=== PATIENT | male | born 1960 | race Caucasian/White ===

== ENCOUNTER → 2016-06-29 | Outpatient (CLI) | payer BC ==
[2016-06-29 18:44] LABS: ALT/SGPT 218 U/L (12-78); AST/SGOT 127 U/L (15-37); BLOOD UREA NITROGEN 17 mg/dl (7-18); BUN/CREATININE RATIO 13.8 (10-20); CALCIUM 9.3 mg/dl (8.5-10.1); CARBON DIOXIDE 27 mmol/L (21-32); CHLORIDE 106 mmol/L (98-107); GLUCOSE 88 mg/dl (70-99); POTASSIUM 4.3 mmol/L (3.5-5.1); SODIUM 143 mmol/L (136-145)
[2016-06-29 18:49] LABS: ALKALINE PHOSPHATASE 118 U/L (45-117); CHOLESTEROL 180 mg/dl (0-200); CHOLESTEROL/HDL RATIO 3.7; HDL CHOLESTEROL 49 mg/dl; LDL CHOLESTEROL CALCULATED 106 mg/dl; TRIGLYCERIDES 123 mg/dl (0-150); VERY LOW DENSITY LIPOPROT CALC 25 mg/dl
--- NOTE | 2016-08-02 06:00 | CODING QUERY MEDICAL NECESSITY ---
CQSUPPORTING DIAGNOSIS NEEDED A supporting diagnosis is required for the test/procedure performed on this patient in order for us to be reimbursed by the patient's insurance. Please provide a supporting diagnosis for the following test/procedure listed below next to the test name along with your signature. *If there is no additional diagnosis for this patient that would support the following test/procedure please document that below next to the test/procedure. Test(s)/Procedure(s) that require a supporting diagnosis: DOS 06/29/16 PROSTATE SPECIFIC TEST (PSA) Provider Signature: Date: Thank you Lesly Laird [facility] Information [facility] Once completed, please kindly fax back to [phone] For questions please call [phone]
== END | disposition home or self-care (01) ==
LOC: C.LABMFLN 16:49
PROVIDERS: ATTEND Family Medicine
DX: I10 Essential (primary) hypertension (principal); E78.00 Pure hypercholesterolemia, unspecified; R74.0 Nonspecific elevation of levels of transaminase and lactic acid dehydrogenase [LDH]; M85.80 Other specified disorders of bone density and structure, unspecified site; E55.9 Vitamin D deficiency, unspecified; Z12.5 Encounter for screening for malignant neoplasm of prostate

== ENCOUNTER → 2017-01-04 | Outpatient (CLI) | payer OTHER ==
[2017-01-04 13:39] LABS: BLOOD UREA NITROGEN 16 mg/dl (7-18); GLUCOSE 113 mg/dl (70-99)
[2017-01-04 13:40] LABS: ALT/SGPT 189 U/L (12-78); AST/SGOT 116 U/L (15-37); CALCIUM 9.4 mg/dl (8.5-10.1); CARBON DIOXIDE 28 mmol/L (21-32); CHLORIDE 107 mmol/L (98-107); POTASSIUM 3.6 mmol/L (3.5-5.1); SODIUM 142 mmol/L (136-145); URIC ACID 5.3 mg/dl (2.6-7.2)
[2017-01-04 13:44] LABS: ALKALINE PHOSPHATASE 112 U/L (45-117); CHOLESTEROL 171 mg/dl (0-200); CHOLESTEROL/HDL RATIO 4.3; HDL CHOLESTEROL 40 mg/dl; LDL CHOLESTEROL CALCULATED 94 mg/dl; TRIGLYCERIDES 186 mg/dl (0-150); VERY LOW DENSITY LIPOPROT CALC 37 mg/dl
== END | disposition home or self-care (01) ==
LOC: C.LABMFLN 09:59
PROVIDERS: ATTEND Family Medicine
DX: N20.1 Calculus of ureter (principal); F32.9 Major depressive disorder, single episode, unspecified; R74.0 Nonspecific elevation of levels of transaminase and lactic acid dehydrogenase [LDH]; M81.0 Age-related osteoporosis without current pathological fracture; E78.00 Pure hypercholesterolemia, unspecified; E55.9 Vitamin D deficiency, unspecified

== ENCOUNTER → 2017-07-12 | Outpatient (CLI) | payer OTHER ==
[2017-07-12 13:10] LABS: ALBUMIN 4.2 gm/dl (3.4-5.0); ALT/SGPT 192 U/L (12-78); AST/SGOT 121 U/L (15-37); BLOOD UREA NITROGEN 17 mg/dl (7-18); CALCIUM 9.7 mg/dl (8.5-10.1); CARBON DIOXIDE 26 mmol/L (21-32); CREATININE 1.19 mg/dl (0.60-1.40); GLUCOSE 110 mg/dl (70-99); POTASSIUM 3.9 mmol/L (3.5-5.1); SODIUM 138 mmol/L (136-145)
[2017-07-12 13:12] LABS: ALKALINE PHOSPHATASE 95 U/L (45-117); CHOLESTEROL 180 mg/dl (0-200); LDL CHOLESTEROL CALCULATED 107 mg/dl; TOTAL PROTEIN 7.4 gm/dl (6.4-8.2)
== END | disposition home or self-care (01) ==
LOC: C.LABMFLN 09:49
PROVIDERS: ATTEND Family Medicine
DX: I10 Essential (primary) hypertension (principal); E78.00 Pure hypercholesterolemia, unspecified; K75.81 Nonalcoholic steatohepatitis (NASH); E55.9 Vitamin D deficiency, unspecified

== ENCOUNTER → 2018-01-03 | Outpatient (CLI) | payer OTHER ==
[2018-01-03 18:35] LABS: ALBUMIN 4.2 gm/dl (3.4-5.0); ALKALINE PHOSPHATASE 88 U/L (45-117); ALT/SGPT 190 U/L (12-78); AST/SGOT 109 U/L (15-37); BLOOD UREA NITROGEN 15 mg/dl (7-18); CALCIUM 9.2 mg/dl (8.5-10.1); CARBON DIOXIDE 29 mmol/L (21-32); CHOLESTEROL 189 mg/dl (0-200); GLUCOSE 85 mg/dl (70-99); LDL CHOLESTEROL CALCULATED 118 mg/dl; POTASSIUM 3.5 mmol/L (3.5-5.1); SODIUM 141 mmol/L (136-145); TOTAL PROTEIN 7.3 gm/dl (6.4-8.2)
== END | disposition home or self-care (01) ==
LOC: C.LABMFLN 13:51
PROVIDERS: ATTEND Family Medicine
DX: I10 Essential (primary) hypertension (principal); E78.00 Pure hypercholesterolemia, unspecified; E55.9 Vitamin D deficiency, unspecified; K75.81 Nonalcoholic steatohepatitis (NASH)